=== PATIENT | male | born 1990 | race Two or more races ===

== ENCOUNTER 2023-06-30 18:26 | Emergency (ER) | payer SELFPAY ==
[2023-06-30 18:54] VITALS: BP 126/78; PULSE 76; RESP 16; TEMP 36.7; O2SAT 99
--- NOTE | 2023-06-30 20:19 | PC.NURSE ---
Pt was called to come back to a room at 2019. RN received no answer from the waiting room.
--- NOTE | 2023-06-30 20:35 | PC.NURSE ---
Pt called back to a room for a 2nd time with no answer from waiting room.
== END 2023-06-30 20:19 | disposition left against medical advice (07) ==
LOC: ANHED 22:47
DX: R51.9 Headache, unspecified (principal)
CPT/HCPCS: 99199